=== PATIENT | male | born 1985 | race Caucasian/White ===

== ENCOUNTER 2021-08-11 10:08 | Emergency (ER) | payer OTHER ==
[~2021-08-11] VITALS: Ht 182.9 cm; Wt 120.1 kg
--- OUTSIDE RECORDS SUMMARY | 2021-08-11 13:22 | CCD ---
Author Author [facility] Organization [facility] Address Unknown Phone Unavailable Care Team Providers Care Director Family Name Role Phone Delcid III, I Ciro DONALDSON Unavailable Unavailable Delcid III, I Ciro DONALDSON Unavailable Unavailable Delcid III, I Ciro DONALDSON Unavailable Unavailable Delcid III, I Ciro DONALDSON Unavailable Unavailable Delcid III, I Ciro DONALDSON Unavailable Unavailable Delcid III, I Ciro DONALDSON Unavailable Unavailable Delcid III, I Ciro DONALDSON Unavailable Unavailable Delcid III, I Ciro DONALDSON Unavailable Unavailable Delcid III, I Ciro DONALDSON Unavailable Unavailable Delcid III, I Ciro DONALDSON Unavailable Unavailable Delcid III, I Ciro DONALDSON Unavailable Unavailable Delcid III, I Ciro DONALDSON Unavailable Unavailable Delcid III, I Ciro DONALDSON Unavailable Unavailable Delcid III, I Ciro DONALDSON Unavailable Unavailable Delcid III, I Ciro DONALDSON Unavailable Unavailable Delcid III, I Ciro DONALDSON Unavailable Unavailable Delcid III, I Ciro DONALDSON Unavailable Unavailable Delcid III, I Ciro DONALDSON Unavailable Unavailable Delcid III, I Ciro DONALDSON Unavailable Unavailable Delcid III, I Ciro DONALDSON Unavailable Unavailable Delcid III, I Ciro DONALDSON Unavailable Unavailable Delcid III, I Ciro DONALDSON Unavailable Unavailable Delcid III, I Ciro DONALDSON Unavailable Unavailable Delcid III, I Ciro DONALDSON Unavailable Unavailable Delcid III, I Ciro DONALDSON Unavailable Unavailable Delcid III, I Ciro DONALDSON Unavailable Unavailable Delcid III, I Ciro DONALDSON Unavailable Unavailable Delcid III, I Ciro DONALDSON Unavailable Unavailable Delcid III, I Ciro DONALDSON Unavailable Unavailable Delcid III, I Ciro DONALDSON Unavailable Unavailable Delcid III, I Ciro DONALDSON Unavailable Unavailable Delcid III, I Ciro DONALDSON Unavailable Unavailable Delcid III, I Ciro DONALDSON Unavailable Unavailable Delcid III, I Ciro DONALDSON Unavailable Unavailable Delcid III, I Ciro DONALDSON Unavailable Unavailable Delcid III, I Ciro DONALDSON Unavailable Unavailable Delcid III, I Ciro DONALDSON Unavailable Unavailable Delcid III, I Ciro MD Unavailable Unavailable Delcid III, I Ciro MD Unavailable Unavailable Delcid III, I Ciro MD Unavailable Unavailable Delcid III, I Ciro MD Unavailable Unavailable Delcid III, I Ciro MD Unavailable Unavailable Delcid III, I Ciro MD Unavailable Unavailable Delcid III, I Ciro MD Unavailable Unavailable Delcid III, I Ciro MD Unavailable Unavailable Delcid III, I Ciro MD Unavailable Unavailable Delcid III, I Ciro MD Unavailable Unavailable Delcid III, I Ciro MD Unavailable Unavailable Delcid III, I Ciro MD Unavailable Unavailable Delcid III, I Ciro MD Unavailable Unavailable Delcid III, I Ciro MD Unavailable Unavailable Delcid III, I Ciro MD Unavailable Unavailable Delcid III, I Ciro MD Unavailable Unavailable Delcid III, I Ciro MD Unavailable Unavailable Jarad, Yann Knight PH.D., M.D. Unavailable Unavailable Jarad, Yann Knight PH.D., M.D. Unavailable Unavailable Jarad, Yann Knight PH.D., M.D. Unavailable Unavailable Jarad, Yann Knight PH.D., M.D. Unavailable Unavailable Jarad, Yann Knight PH.D., M.D. Unavailable Unavailable Jarad, Yann Knight PH.D., M.D. Unavailable Unavailable Jarad, Yann Knight PH.D., M.D. Unavailable Unavailable Jarad, Yann Knight PH.D., M.D. Unavailable Unavailable Jarad, Yann Knight PH.D., M.D. Unavailable Unavailable Jarad, Yann Knight PH.D., M.D. Unavailable Unavailable Jarad, Yann Knight PH.D., M.D. Unavailable Unavailable Jarad, Yann Knight PH.D., M.D. Unavailable Unavailable Jarad, Yann Knight PH.D., M.D. Unavailable Unavailable Jarad, Yann Knight PH.D., M.D. Unavailable Unavailable Jarad, Yann Knight PH.D., M.D. Unavailable Unavailable Jarad, Yann Knight PH.D., M.D. Unavailable Unavailable Jarad, Yann Knight PH.D., M.D. Unavailable Unavailable Jarad, Yann Knight PH.D., M.D. Unavailable Unavailable Jarad, Yann Knight PH.D., M.D. Unavailable Unavailable Jarad, Yann Knight PH.D., M.D. Unavailable Unavailable Jarad, Yann Knight PH.D., M.D. Unavailable Unavailable Jarad, Yann Knight PH.D., M.D. Unavailable Unavailable Jarad, Yann Knight PH.D., M.D. Unavailable Unavailable Jarad, C Eugene PH.D., M.D. Unavailable Unavailable Jarad, C Eugene PH.D., M.D. Unavailable Unavailable Jarad, C Eugene PH.D., M.D. Unavailable Unavailable Jarad, C Eugene PH.D., M.D. Unavailable Unavailable Jarad, C Eugene PH.D., M.D. Unavailable Unavailable Jarad, C Eugene PH.D., M.D. Unavailable Unavailable Jarad, C Eugene PH.D., M.D. Unavailable Unavailable Jarad, C Eugene PH.D., M.D. Unavailable Unavailable Jarad, C Eugene PH.D., M.D. Unavailable Unavailable Jarad, C Eugene PH.D., M.D. Unavailable Unavailable Jarad, C Eugene PH.D., M.D. Unavailable Unavailable Jarad, C Eugene PH.D., M.D. Unavailable Unavailable Jarad, C Eugene PH.D., M.D. Unavailable Unavailable Jarad, C Eugene PH.D., M.D. Unavailable Unavailable Jarad, C Eugene PH.D., M.D. Unavailable Unavailable Jarad, C Eugene PH.D., M.D. Unavailable Unavailable Jarad, C Eugene PH.D., M.D. Unavailable Unavailable Jarad, C Eugene PH.D., M.D. Unavailable Unavailable Jarad, C Eugene PH.D., M.D. Unavailable Unavailable Jarad, C Eugene PH.D., M.D. Unavailable Unavailable Jarad, C Eugene PH.D., M.D. Unavailable Unavailable Jarad, C Eugene PH.D., M.D. Unavailable Unavailable Jarad, C Eugene PH.D., M.D. Unavailable Unavailable Jarad, C Eugene PH.D., M.D. Unavailable Unavailable Jarad, C Eugene PH.D., M.D. Unavailable Unavailable Jarad, C Eugene PH.D., M.D. Unavailable Unavailable Jarad, C Eugene PH.D., M.D. Unavailable Unavailable Jarad, C Eugene PH.D., M.D. Unavailable Unavailable Jarad, C Eugene PH.D., M.D. Unavailable Unavailable Jarad, C Eugene PH.D., M.D. Unavailable Unavailable Jarad, C Eugene PH.D., M.D. Unavailable Unavailable Jarad, C Eugene PH.D., M.D. Unavailable Unavailable Jarad, C Eugene PH.D., M.D. Unavailable Unavailable Jarad, C Eugene PH.D., M.D. Unavailable Unavailable Jarad, C Eugene PH.D., M.D. Unavailable Unavailable Jarad, C Eugene PH.D., M.D. Unavailable Unavailable Jarad, C Eugene PH.D., M.D. Unavailable Unavailable Jarad, C Eugene PH.D., M.D. Unavailable Unavailable Jarad, C Eugene PH.D., M.D. Unavailable Unavailable Jarad, C Eugene PH.D., M.D. Unavailable Unavailable Jarad, C Eugene PH.D., M.D. Unavailable Unavailable Jarad, C Eugene PH.D., M.D. Unavailable Unavailable Jarad, C Eugene PH.D., M.D. Unavailable Unavailable Jarad, C Eugene PH.D., M.D. Unavailable Unavailable Jarad, C Eugene PH.D., M.D. Unavailable Unavailable Jarad, C Eugene PH.D., M.D. Unavailable Unavailable Jarad, C Eugene PH.D., M.D. Unavailable Unavailable Jarad, C Eugene PH.D., M.D. Unavailable Unavailable Jarad, Yann Knight PH.D., M.D. Unavailable Unavailable Jarad, Yann Knight PH.D., M.D. Unavailable Unavailable Jarad, C Eugene PH.D., M.D. Unavailable Unavailable Jarad, C Eugene PH.D., M.D. Unavailable Unavailable Jarad, C Eugene PH.D., M.D. Unavailable Unavailable Jarad, C Eugene PH.D., M.D. Unavailable Unavailable Jarad, C Eugene PH.D., M.D. Unavailable Unavailable Jarad, C Eugene PH.D., M.D. Unavailable Unavailable Jarad, C Eugene PH.D., M.D. Unavailable Unavailable Jarad, C Eugene PH.D., M.D. Unavailable Unavailable Jarad, C Eugene PH.D., M.D. Unavailable Unavailable Re-disclosure Warning The records that you are about to access may contain information from federally-assisted alcohol or drug abuse programs. If such information is present, then the following federally mandated warning applies: This information has been disclosed to you from records protected by federal confidentiality rules (42 CFR part 2). The federal rules prohibit you from making any further disclosure of this information unless further disclosure is expressly permitted by the written consent of the person to whom it pertains or as otherwise permitted by 42 CFR part 2. A general authorization for the release of medical or other information is NOT sufficient for this purpose. The Federal rules restrict any use of the information to criminally investigate or prosecute any alcohol or drug abuse patient.The records that you are about to access may contain highly sensitive health information, the redisclosure of which is protected by Article 27-F of the [facility] Public Health law. If you continue you may have access to information: Regarding HIV / AIDS; Provided by facilities licensed or operated by the [facility] Office of Mental Health; or Provided by the [facility] Office for People With Developmental Disabilities. If such information is present, then the following [facility] mandated warning applies: This information has been disclosed to you from confidential records which are protected by state law. State law prohibits you from making any further disclosure of this information without the specific written consent of the person to whom it pertains, or as otherwise permitted by law. Any unauthorized further disclosure in violation of state law may result in a fine or fdc sentence or both. A general authorization for the release of medical or other information is NOT sufficient authorization for further disc losure. Encounters Encounter Providers Location Date Indications Data Source(s ) Outpatient Attender: Ciro Delcid IIIRefleonorer: Eugene coe PH.D., MMati. 09/15/2021 12:00:00 AM [facility] Outpatient Attender: Ciro Harding: Eugene coe PH.Waylon., MMati. 07/03/2021 12:00:00 AM [facility] Outpatient Attender: Eugene Abraham PH.Waylon., MIvaniaD. Berenice/Susanna/Stevie brown/Jyothi 04/23/2021 03:45:00 PM EDT [facility] ([facility] ) Medications No Information Insurance Providers Payer name Policy type / Coverage type Policy ID Covered alliance party ID Covered alliance party's relationship to rhodes Policy [place] Plan Information [facility] [id number] Self [id number] [facility] [employer] [id number] SP [id number] Problems, Conditions, and Diagnoses Code Display Name Description Problem Type Effective Dates Data Source(s) H90.41 Sensorineural hearing loss in right ear Sensorineural hearing loss in right ear Problem 04/23/2021 12:00:00 AM EDT [facility] ([facility] ) Surgeries/Procedures Procedure Description Date Indications Data Source(s) OFFICE OUTPATIENT NEW 45 MINUTES 04/23/2021 12:00:00 A M EDT [facility] ([facility]) Results No Information Social History No Information Vital Signs ID Date Data Source UNK Name Value Range Interpretation Code Description Data Source(s) Oxygen saturation in Arterial blood by Pulse oximetry 98 % 98 % [facility] ([facility]) Body height 72 [in_i] 72 [in_i] [facility] ([facility]) 6'0" Body weight 260.00 [lb_av] 260.00 [lb_av] [facility] ([facility]) Oxygen saturation in Arterial blood by Pulse oximetry 98 % 98 % [facility] ([facility]) Body mass index (BMI) [Ratio] 35.3 kg/m2 35.3 k g/m2 [facility] ([facility]) [place] body weight 178 [lb_av] 178 [lb_av] [facility] ([facility]) Body weight 117.936 kg 117.936 kg [facility] ([facility]) Body surface area Derived from formula 2.38 m2 2.38 m2 [facility] ([facility]) Body height 72 [in_i] 72 [in_i] [facility] ([facility]) 6'0" Body weight 260.00 [lb_av] 260.00 [lb_av] [facility] ([facility]) Body mass index (BMI) [Ratio] 35.3 kg/m2 35.3 k g/m2 [facility] ([facility]) [place] body weight 178 [lb_av] 178 [lb_av] [facility] Body weight 117.936 kg 117.936 kg [facility] ([facility]) Body surface area Derived from formula 2.38 m2 2.38 m2 [facility] ([facility]) Systolic blood pressure 120 mm[Hg] 120 mm[Hg] M [facility] ([facility]) Diastolic blood pressure 82 mm[Hg] 82 mm[Hg] [facility] ([facility]) Heart rate 90 /min 90 /min [facility] ([facility])
--- OUTSIDE RECORDS SUMMARY | 2021-08-11 13:22 | CCD | Continuity of Care Document ---
Author Author Olayinka ABRAHAM MD Organization Unknown Address [address] [place] [address] Phone [phone] Care Team Providers Care Cutting Machine Tender Name Role Phone eDb Lainez [phone] Problems Active Problems Provider Date Sensorineural hearing loss in right ear Eugene Abraham MD Onset: 04/23/2021 Social History Type Date Description Comments Sex Unknown Smokeless Tobacco Current User ETOH Use 1-2 A Week Recreational Drug Use Never Used Drugs Tobacco Use Start: Unknown Patient has never smoked Allergies, Adverse Reactions, Alerts Active Allergies Reaction Severity Comments Date Amoxicillin unknown 04/23/2021 Medications Active Medications SIG Qnty Indications Ordering Provide r Date Flonase Allergy Relief 50mcg/Act Suspension 2 sprays per nostril daily Unknown 0 Zyrtec Allergy 10mg Tablets 1 tablet daily Unknown Immunizations Description No Information Available Vital Signs Date Vital Result Comment 04/23/2021 3:48pm BP Systolic 120 mmHg BP Diastolic 82 mmHg Heart Rate 90 /min O2 % BldC Oximetry 98 % Height 72 inches 6'0" Weight 260.00 lb BMI (Body Mass Index) 35.3 kg/m2 [place] Body Weight 178 lb Weight 117.936 kg BSA (Body Surface Area) 2.38 m2 Results Description No Information Available Procedures Date Code Description Status 04/23/2021 [address]8765 Office/Outpatient New Moderate M DM 45-59 Minutes Completed Medical Devices Description No Information Available Encounters Type Date Location Provider Dx Diagnosis Office Visit 04/23/2021 3:45p [facility] Michelle Rao H90.41 Snsrnrl hear loss, uni, right ear, w unrestr hear cntra side Assessments Date Code Description Provider 04/23/2021 H90.41 Sensorineural hearin g loss, unilateral, right ear, with unrestricted hearing on the contralateral side Eugene Abraham MD Plan of Treatment 04/23/2021 - Eugene Abraham MD* H90.41 Sensorineural hearing loss, unilateral, right ear, with unrestricted hearing on the contralateral side* Comments:* I discussed Olayinka's audiogram results with him. I discussed that his word disc rimination is poor at 10 and 20% even at high volumes. I do not feel that hearing aids will benefit him but cause more irritation from not gaining benefit. Cross hearing aids will assist in being able to hear words, but will not be able to determine the direction. He inquired about a possible cochlear implant. I offered to refer him to Dr Delcid at [facility] to discuss whether he would be a candidate for this procedure. I will be happy to see him at any time for changes. * Referral:* Ciro Delcid, Otolaryngology Functional Status Description No Information Available Mental Status Description No Information Available Referrals Refer to Reason for Referral Status Appt Date Ciro Delcid Possible cochlear implant Sent [id number] [place], [place] [address] [phone] Eugene Abraham M.D. CLASSIFIER ENCT FOR HEARING CONSERVA TION AND T REF M [facility] OFFICE CONSULT NEW OR EST PT UNITS 1 03/22/21-09/18/21 OFFICE/OUTPATIENT EST MINIMAL [place] UNITS 11 03/22/21-03/22/22 Scheduled 04/23/[address] [address] [phone]
[2021-08-11] MEDS ORDERED: IBUP-1022 PO (14:39)
[2021-08-11] MEDS ORDERED: ACET-683 PO (14:39)
[2021-08-11] MEDS ORDERED: CYCL5TAB PO (14:39)
[2021-08-11] MEDS ORDERED: KETOROLAC 30 MG/ML 1ML VIAL IM ONE (14:40)
[2021-08-11 15:00] VITALS: BP 145/93
== END 2021-08-11 15:13 | disposition home or self-care (01) ==
LOC: M ED 10:08
DX: M54.50 Low back pain, unspecified (principal); Z88.0 Allergy status to penicillin
CPT/HCPCS: 96372; 99283; J1885